=== PATIENT | male | born 1985 | race Caucasian/White ===

== ENCOUNTER → 2018-05-28 08:11 | Outpatient (CLI) | payer BC, SELFPAY ==
--- NOTE | 2018-05-28 08:13 | DI.ECHO.S_ITS ---
[facility] +---------+ : : [address] : : : : [place] : : : : [id number] : : : : Phone: [phone] +---------+ Echocardiogram Report + + :Name: THERESE GALLAGHER Study Date: 05/28/2018 Height: 67 in : :[facility] Exam Location: [place] Weight: 150 lb : : Gender: Male BSA: 1.8 m2 : :: 1985 Age: 32 yrs BP: 120/80 mmHg: :Reason For Study: Abnormal ECG : : Performed By: Socorro Page : :Referring: RAMONITA MAHAJAN : + + Interpretation Summary The left ventricle is normal in size, wall thickness, and systolic function without any focal wall motion abnormalities. The ejection fraction is estimated to be 60-65%. The right ventricle is borderline dilated. The right ventricular systolic function is normal. No significant valvular pathology seen. Procedure: A two-dimensional transthoracic echocardiogram with color flow and Doppler was performed. The study quality was technically good. There is no prior echocardiogram noted for this patient. The patient was in normal sinus rhythm during the exam. Left Ventricle: The left ventricle is normal in size, wall thickness, and systolic function without any focal wall motion abnormalities. There is no thrombus. The ejection fraction is estimated to be 60-65%. There are no focal wall motion abnormalities. Assessment of diastolic parameters indicates normal left ventricular diastolic function and normal filling pressures. Right Ventricle: The right ventricle is borderline dilated. The right ventricular systolic function is normal. Atria: The left atrial size is normal. Right atrial size is normal. There is no Doppler evidence for an interatrial shunt. Mitral Valve: The mitral valve is normal in structure and function. There is trace mitral regurgitation. Aortic Valve: The aortic valve is trileaflet. The aortic valve opens well. There is trace aortic regurgitation. Tricuspid Valve: The tricuspid valve is normal in structure and function. There is trace tricuspid regurgitation. The right ventricular systolic pressure is estimated at least 20 mmHg assuming a right atrial pressure of 8 mm Hg. Pulmonic Valve: The pulmonic valve is not well visualized. There is trace pulmonic regurgitation. Great Vessels: The aortic root is normal size. The ascending aorta is at the upper limits of normal in size. The aortic arch could not be visualized. The pulmonary artery is not well visualized, but is probably normal size. The IVC is dilated (diameter is greater than 2.1 cm) yet it collapses greater than 50% with a sniff. This suggests a right atrial pressure of 8 mm Hg. Pericardium/ Pleura There is no pericardial effusion. There is no pleural effusion. MMode/2D Measurements & Calculations LVIDd: 4.6 cm LVOT diam: 2.3 cm LVIDs: 3.1 cm Ao root diam: 3.3 cm FS: 32.0 % asc Aorta Diam: 3.4 cm EPSS: 0.14 cm IVSd: 0.88 cm LVPWd: 0.84 cm LV turpin. diameter/BSA (cm/m^2): 2.6 LV sys. diameter/BSA (cm/m^2): 1.8 LA A2 area: 25.0 cm2 RA long axis: 4.9 cm LA A4 area: 20.2 cm2 RA area: 21.4 cm2 LA length (vol): 5.4 cm RA vol: 79.6 ml LA vol: 79.4 ml RA : 44.5 ml/m2 LA vol index: 44.4 ml/m2 IVC diam: 2.3 cm RVD1 (basal): 4.7 cm TAPSE: 2.7 cm Doppler Measurements & Calculations Ao V2 max: 108.4 cm/sec LVOT Max Maikol: 112.4 cm/sec Ao V2 mean: 75.9 cm/sec LV V1 max P.1 mmHg Ao max P.7 mmHg LV V1 VTI: 21.2 cm Ao mean P.5 mmHg SHAQUILLE(I,D): 3.5 cm2 Ao V2 VTI: 24.4 cm SHAQUILLE(V,D): 4.2 cm2 sev ratio: 0.87 SHAQUILLE indexed to BSA (cm^2/m^2): 2.0 MV E max maikol: 77.4 cm/sec TR max maikol: 175.0 cm/sec MV A max maikol: 53.4 cm/sec TR max P.3 mmHg MV E/A: 1.4 PA V2 max: 79.7 cm/sec Med Peak E' Maikol: 11.9 cm/sec PA V2 mean: 56.0 cm/sec E/E' med: 6.5 PA mean P.4 mmHg Lat Peak E' Maikol: 17.3 cm/sec PA pr(Accel): 26.6 mmHg E/E' lat: 4.5 PA Accel Time: 0.12 sec E/e' average: 5.5 MV dec time: 0.20 sec MV P1/2t: 57.8 msec MV P1/2t max maikol: 77.3 cm/sec MVA(P1/2t): 3.8 cm2 Reading Physician:[email or web address]
== END ==
PROVIDERS: PCP Family Medicine; Visit Provider Family Medicine
DX: R94.31 Abnormal electrocardiogram [ECG] [EKG] (principal)
CPT/HCPCS: 93306

== ENCOUNTER → 2020-08-11 13:47 | Outpatient (CLI) | payer BC, SELFPAY ==
[2020-08-12 19:07] LABS: COVID19 Sendout Not Detected (Not Detect)
== END ==
PROVIDERS: PCP Family Medicine; Visit Provider Physician Assistant
DX: Z11.59 Encounter for screening for other viral diseases (principal)
CPT/HCPCS: 87635